=== PATIENT | female | born 1960 | race African-American/Black ===

== ENCOUNTER 2019-04-29 13:21 | Inpatient (IN) | payer OTHER ==
[2019-04-29 14:21] VITALS: BMI 24.3
--- NOTE | 2019-04-29 15:40 | HP ---
CIWA Score Nausea/Vomitin-Mild Nausea/No Vomiting Muscle Tremors: 2 Anxiety: 3 Agitation: 3 Paroxysmal Sweats: 1-Minimal Palms Moist Orientation: 0-Oriented Tacttile Disturbances: 0-None Auditory Disturbances: 0-None Visual Disturbances: 0-None Headache: 3-Moderate CIWA-Ar Total Score: 13 - Admission Criteria OASAS Guidelines: Admission for Medically Managed Detox: Requires at least one of the followin. CIWA greater than 12 2. Seizures within the past 24 hours 3. Delirium tremens within the past 24 hours 4. Hallucinations within the past 24 hours 5. Acute intervention needed for co occurring medical disorder 6. Acute intervention needed for co occurring psychiatric disorder 7. Severe withdrawal that cannot be handled at a lower level of care (continued vomiting, continued diarrhea, abnormal vital signs) requiring intravenous medication and/or fluids 8. Patient presents the following: CIWA greater than 12 Admission Criteria Met: Admission criteria met Admitting History and Physical - Past Medical History ...LMP: 06/11/13 - Smoking History Smoking history: Current every day smoker Have you smoked in the past 12 months: Yes Aproximately how many cigarettes per day: 5 - Alcohol/Substance Use Hx Alcohol Use: Yes (BEER/SOME DAY VODKA) Admission ROS [facility] Chief Complaint: here for detox Allergies/Adverse Reactions: Allergies Allergy/AdvReac Type Severity Reaction Status Date / Time No Known Allergies Allergy Verified 04/29/19 14:08 History of Present Illness: 58 yo with mental health issues and HIV, HTN, emphysema, lives in [facility]. Was referred here by counselor from her residence for detox. PCP- Dr. Joshi at [facility]. Atripla- takes it every day. Tcell 634, VL <50 per pt Pt states she drinks a 6-pack/day and occ vodka/rum. Says she is not eating well. Last drink this morning- THOMAS-0. Says she feels agitated. Cocaine $100/day DUR- oxycodone #60 on 04/16 and ambien 10mg #10 on 04/05: not seen in urine. Says she only uses it occ - Ebola screening Have you traveled outside of the country in the last 21 days: No Have you had contact with anyone from an Ebola affected area: No Do you have a fever: No - Review of Systems Constitutional: No Symptoms Reported EENT: reports: No Symptoms Reported Respiratory: reports: No Symptoms reported Cardiac: reports: No Symptoms Reported GI: reports: No Symptoms Reported : reports: No Symptoms Reported Musculoskeletal: reports: No Symptoms Reported Integumentary: reports: No Symptoms Reported Neuro: reports: No Symptoms reported Endocrine: reports: No Symptoms Reported Hematology: reports: No Symptoms Reported Psychiatric: reports: Depressed (pt states she wants to change- does not like the drinking and the crakck cocaine use) Patient History - Patient Medical History Hx Anemia: Yes Hx Asthma: No Hx Chronic Obstructive Pulmonary Disease (COPD): No Hx Cardiac Disorders: No Hx Congestive Heart Failure: No Hx Hypertension: Yes (currently on treatment) Hx Hypercholesterolemia: No HX Cerebrovascular Accident: No Hx Seizures: No Hx Diabetes: No Hx Gastrointestinal Disorders: No Hx Liver Disease: No Hx Genitourinary Disorders: No Hx Sexually Transmitted Disorders: No Hx Renal Disease (ESRD): No Hx Thyroid Disease: No Hx Human Immunodeficiency Virus (HIV): Yes (SINCE 1995) Hx Hepatitis C: No Hx Depression: Yes Hx Suicide Attempt: No Hx Bipolar Disorder: Yes Hx Schizophrenia: Yes - Patient Surgical History Past Surgical History: Yes Hx Neurologic Surgery: No Hx Cataract Extraction: No Hx Cardiac Surgery: No Hx Lung Surgery: No Hx Breast Surgery: No Hx Breast Biopsy: No Hx Abdominal Surgery: No Hx Appendectomy: No Hx Cholecystectomy: No Hx Genitourinary Surgery: No Hx Section: No Hx Orthopedic Surgery: Yes (LEFT HAND WITH 6 PLATES/SCREWS IN 1997) Anesthesia Reaction: No - PPD History Date: 06/15/13 - Reproductive History Last Menstrual Period: 06/11/13 - Smoking Cessation Smoking history: Current every day smoker Have you smoked in the past 12 months: Yes Aproximately how many cigarettes per day: 10 Hx Chewing Tobacco Use: Yes Initiated information on smoking cessation: Yes 'Breaking Loose' booklet given: 04/29/19 - Substance & Tx. History Hx Alcohol Use: Yes Hx Substance Use: Yes Substance Use Type: Alcohol, Cocaine - Substances abused Alcohol Substance route: Oral Frequency: Daily Amount used: 6 cans of beer, 1 pint liqour Age of first use: 22 Date of last use: 04/29/19 Crack Substance route: Smoking Frequency: Daily Amount used: $50 Age of first use: 20 Date of last use: 04/28/19 Admission Physical Exam BHS - Vital Signs Vital Signs: Vital Signs - 24 hr 04/29/19 14:15 Temperature 97 F L Pulse Rate 63 Respiratory 18 Rate Blood Pressure 179/93 H - Physical General Appearance: Yes: Within Normal Limits, Irritable HEENTM: Yes: Within Normal Limits, Hearing grossly Normal, Normal Voice, CLIVE, Other (dentures) Respiratory: Yes: Within Normal Limits, Chest Non-Tender, Lungs Clear Neck: Yes: Within Normal Limits Cardiology: Yes: Within Normal Limits, Regular Rate Abdominal: Yes: Within Normal Limits, Normal Bowel Sounds Genitourinary: Yes: Within Normal Limits Back: Yes: Within Normal Limits Musculoskeletal: Yes: Within Normal Limits Extremities: Yes: Within Normal Limits Neurological: Yes: Within Normal Limits Integumentary: Yes: Within Normal Limits Lymphatic: Yes: Within Normal Limits Breathalyzer - Breathalyzer Breathalyzer: 0 Urine Drug Screen - Test Device Lot number: [id number] Expiration date: 12/28/20 - Control Is test valid?: Yes - Results Drug screen NEGATIVE: No Urine drug screen results: BZO-Benzodiazepines Inpatient Rehab Admission - Rehab Decision to Admit Inpatient rehab admission?: No
[2019-04-29] MEDS ORDERED: MENTHOL/PHENOL 1 EACH UD MM PRN (15:55)
[2019-04-29] MEDS ORDERED: chlordiazePOXIDE HCL 25 MG CAPSULE PO PRN (15:55)
[2019-04-29] MEDS ORDERED: MELATONIN 5 MG TABLETS PO PRN (15:55)
[2019-04-29] MEDS ORDERED: BISMUTH SUBSALICYLATE 524 MG/30 ML UD PO PRN (15:55)
[2019-04-29] MEDS ORDERED: IBUPROFEN 400 MG TABLET (FP) PO PRN (15:55)
[2019-04-29] MEDS ORDERED: hydrOXYzine PAMOATE 25 MG CAPSULE (FP) PO PRN (15:55)
[2019-04-29] MEDS ORDERED: ACETAMINOPHEN 325 MG TABLET (FP) PO PRN (15:55)
[2019-04-29] MEDS ORDERED: MAGNESIUM CITRATE 300 ML BOTTLE PO PRN (15:55)
[2019-04-29] MEDS ORDERED: METHOCARBAMOL 500 MG TABLET PO PRN (15:55)
[2019-04-29] MEDS ORDERED: MAG HYDROX/AL HYDROX/SIMETH 30 ML UNIT-DOSE CUP PO PRN (15:55)
[2019-04-29] MEDS: chlordiazePOXIDE HCL 25 MG CAPSULE PO SCH ×2 (17:26→22:10)
[2019-04-29] MEDS: ALBUTEROL SO4 8 GM HFA INHALER IH SCH ×2 (17:27→22:11)
[2019-04-29] MEDS ORDERED: cloNIDine HCL 0.1 MG TABLET PO ONE (18:00)
[2019-04-29] MEDS ORDERED: QUEtiapine FUMARATE 25 MG TABLET (FP) PO SCH (22:00)
[2019-04-29] MEDS: THIAMINE HCL 100 MG TABLET (FP) PO SCH (22:10)
[2019-04-30] MEDS: chlordiazePOXIDE HCL 25 MG CAPSULE PO SCH ×4 (05:50→22:39)
[2019-04-30] MEDS: ALBUTEROL SO4 8 GM HFA INHALER IH SCH ×6 (05:51→21:01)
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
[2019-04-30] MEDS ORDERED: PATIENT'S OWN MEDICATION (NON-FORMULARY) (Efavirenz/Emtricitab/Tenofovir 1 TAB) PO SCH (10:00)
[2019-04-30] MEDS: EFAVIRENZ 600 MG TABLET PO SCH (10:40)
[2019-04-30] MEDS: PRENATAL VITAMINS W/ FOLIC ACID TABLET (FP) PO SCH (10:40)
[2019-04-30] MEDS: NICOTINE 14 MG/24 HOURS TOPICAL PATCH TD SCH (10:40)
[2019-04-30] MEDS: EMTRICITABINE 200MG/TENOFOVIR 300MG PO SCH (10:40)
[2019-04-30] MEDS: NIFEdipine E.R. 90 MG TABLET (FP) PO SCH (10:40)
[2019-04-30 12:05] LABS: HEMATOCRIT 37.1 % (32.4-45.2); HEMOGLOBIN 12.6 GM/dL (10.7-15.3); MCH 32.4 pg (25.7-33.7); MCHC 33.8 g/dl (32.0-36.0); MEAN CELL VOLUME 95.6 fl (80-96); MEAN PLT VOLUME 8.5 fl (7.5-11.1); PLATELET COUNT 264 K/MM3 (134-434); RBC 3.88 M/mm3 (3.60-5.2); RDW 14.2 % (11.6-15.6); WHITE BLOOD COUNT 4.7 K/mm3 (4.0-10.0)
[2019-04-30 12:40] LABS: ALBUMIN 3.5 g/dl (3.4-5.0); BILIRUBIN,TOTAL 0.6 mg/dL (0.2-1); BLOOD UREA NITROGEN 15.5 mg/dL (7-18); CALCIUM 8.6 mg/dL (8.5-10.1); CREATININE 0.9 mg/dL (0.55-1.3); POTASSIUM 4.5 mmol/L (3.5-5.1); TOT PROT 6.4 g/dl (6.4-8.2)
--- NOTE | 2019-04-30 14:03 | PN ---
S CIWA - CIWA Score Nausea/Vomitin-No Nausea/No Vomiting Muscle Tremors: 3 Anxiety: 2 Agitation: 3 Paroxysmal Sweats: 3 Orientation: 0-Oriented Tacttile Disturbances: 0-None Auditory Disturbances: 0-None Visual Disturbances: 0-None Headache: 0-None Present CIWA-Ar Total Score: 11 S Progress Note (SOAP) Subjective: sweats stomach ache headache interrupted sleep body aches Objective: 04/30/19 14:02 Vital Signs Temperature 98.4 F 04/30/19 13:29 Pulse Rate 75 04/30/19 13:29 Respiratory Rate 18 04/30/19 13:29 Blood Pressure 158/89 04/30/19 13:29 O2 Sat by Pulse Oximetry (%) Laboratory Tests 04/30/19 04/30/19 08:45 08:45 WBC 4.7 RBC 3.88 Hgb 12.6 Hct 37.1 MCV 95.6 MCH 32.4 MCHC 33.8 RDW 14.2 Plt Count 264 MPV 8.5 Sodium 140 Potassium 4.5 Chloride 107 Carbon Dioxide 28 Anion Gap 6 L BUN 15.5 Creatinine 0.9 Est GFR (CKD-EPI)AfAm 82.84 Est GFR (CKD-EPI)NonAf 71.48 Random Glucose 79 Calcium 8.6 Total Bilirubin 0.6 AST 9 L ALT 18 Alkaline Phosphatase 109 Total Protein 6.4 Albumin 3.5 labs noted aaox3 ambulating no acute distress Assessment: 04/30/19 14:03 withdrawals sx Plan: continue detox increase fluids MOM prn tylenol prn
[2019-04-30] MEDS ORDERED: QUEtiapine FUMARATE 50 MG TABLET ONE (19:57)
[2019-04-30] MEDS: THIAMINE HCL 100 MG TABLET (FP) PO SCH (22:38)
[2019-04-30] MEDS: QUEtiapine FUMARATE 50 MG TABLET PO SCH (22:39)
[2019-05-01] MEDS ORDERED: chlordiazePOXIDE HCL 25 MG CAPSULE PO SCH (05:00)
[2019-05-01] MEDS ORDERED: chlordiazePOXIDE 5 MG CAPSULE PO SCH (05:45)
[2019-05-01] MEDS: ALBUTEROL SO4 8 GM HFA INHALER IH SCH ×6 (06:24→23:07)
[2019-05-01] MEDS: PRENATAL VITAMINS W/ FOLIC ACID TABLET (FP) PO SCH (10:16)
[2019-05-01] MEDS: NICOTINE 14 MG/24 HOURS TOPICAL PATCH TD SCH (10:16)
[2019-05-01] MEDS: EMTRICITABINE 200MG/TENOFOVIR 300MG PO SCH (10:17)
[2019-05-01] MEDS: EFAVIRENZ 600 MG TABLET PO SCH (10:17)
[2019-05-01] MEDS: NIFEdipine E.R. 90 MG TABLET (FP) PO SCH (10:17)
[2019-05-01] MEDS: MAGNESIUM HYDROX 2400MG/30ML ORAL SUSPENSION 30 ML CUP PO PRN ×2 (10:34→17:40)
[2019-05-01] MEDS ORDERED: diazePAM 5 MG TABLET PO PRN (10:37)
[2019-05-01] MEDS ORDERED: ONDANSETRON *ODT* 4 MG TABLET SL PRN (11:11)
--- NOTE | 2019-05-01 11:11 | PN ---
S CIWA - CIWA Score Nausea/Vomitin-No Nausea/No Vomiting Muscle Tremors: 3 Anxiety: 3 Agitation: 2 Paroxysmal Sweats: 2 Orientation: 0-Oriented Tacttile Disturbances: 0-None Auditory Disturbances: 0-None Visual Disturbances: 0-None Headache: 0-None Present CIWA-Ar Total Score: 10 BHS Progress Note (SOAP) Subjective: The librium is really messing up with my stomach sweats little shakes interrupted sleep tired nausea Objective: 05/01/19 11:09 Vital Signs Temperature 98.9 F 05/01/19 09:28 Pulse Rate 81 05/01/19 09:28 Respiratory Rate 17 05/01/19 09:28 Blood Pressure 160/95 05/01/19 09:28 O2 Sat by Pulse Oximetry (%) Laboratory Tests 04/30/19 04/30/19 04/30/19 08:45 08:45 08:45 WBC 4.7 RBC 3.88 Hgb 12.6 Hct 37.1 MCV 95.6 MCH 32.4 MCHC 33.8 RDW 14.2 Plt Count 264 MPV 8.5 Sodium 140 Potassium 4.5 Chloride 107 Carbon Dioxide 28 Anion Gap 6 L BUN 15.5 Creatinine 0.9 Est GFR (CKD-EPI)AfAm 82.84 Est GFR (CKD-EPI)NonAf 71.48 Random Glucose 79 Calcium 8.6 Total Bilirubin 0.6 AST 9 L ALT 18 Alkaline Phosphatase 109 Total Protein 6.4 Albumin 3.5 RPR Titer Nonreactive labs noted aaox3 ambulating no acute distress Assessment: 05/01/19 11:10 withdrawals Plan: pt agreed to have her detox medication switched from librium to valium detox. continue with new detox regimen as per pt request increase fluids MOM/mylanta prn zofran sl prn
[2019-05-01] MEDS: ACETAMINOPHEN 325 MG TABLET (FP) PO PRN ×2 (17:54→22:53)
[2019-05-01] MEDS: diazePAM 5 MG TABLET PO SCH (22:11)
[2019-05-01] MEDS: THIAMINE HCL 100 MG TABLET (FP) PO SCH (22:11)
[2019-05-01] MEDS: QUEtiapine FUMARATE 50 MG TABLET PO SCH (22:11)
[2019-05-02] MEDS ORDERED: chlordiazePOXIDE HCL 10 MG CAPSULE PO PRN
[2019-05-02] MEDS: ALBUTEROL SO4 8 GM HFA INHALER IH SCH ×6 (00:36→20:30)
[2019-05-02] MEDS ORDERED: chlordiazePOXIDE HCL 10 MG CAPSULE PO SCH (05:00)
[2019-05-02] MEDS: diazePAM 5 MG TABLET PO SCH ×2 (10:54→22:29)
[2019-05-02] MEDS: PRENATAL VITAMINS W/ FOLIC ACID TABLET (FP) PO SCH (10:55)
[2019-05-02] MEDS: NICOTINE 14 MG/24 HOURS TOPICAL PATCH TD SCH (10:55)
[2019-05-02] MEDS: EFAVIRENZ 600 MG TABLET PO SCH (10:55)
[2019-05-02] MEDS: NIFEdipine E.R. 90 MG TABLET (FP) PO SCH (10:55)
[2019-05-02] MEDS: EMTRICITABINE 200MG/TENOFOVIR 300MG PO SCH (10:55)
[2019-05-02] MEDS: ACETAMINOPHEN 325 MG TABLET (FP) PO PRN (11:54)
--- NOTE | 2019-05-02 13:23 | PN ---
S CIWA - CIWA Score Nausea/Vomitin-No Nausea/No Vomiting Muscle Tremors: 3 Anxiety: 2 Agitation: 2 Paroxysmal Sweats: 2 Orientation: 0-Oriented Tacttile Disturbances: 0-None Auditory Disturbances: 0-None Visual Disturbances: 0-None Headache: 0-None Present CIWA-Ar Total Score: 9 S Progress Note (SOAP) Subjective: agitation irritable body aches Objective: 05/02/19 13:21 Vital Signs Temperature 98.4 F 05/02/19 09:58 Pulse Rate 80 05/02/19 09:58 Respiratory Rate 16 05/02/19 09:58 Blood Pressure 158/91 05/02/19 09:58 O2 Sat by Pulse Oximetry (%) Laboratory Tests 04/30/19 04/30/19 04/30/19 08:45 08:45 08:45 WBC 4.7 RBC 3.88 Hgb 12.6 Hct 37.1 MCV 95.6 MCH 32.4 MCHC 33.8 RDW 14.2 Plt Count 264 MPV 8.5 Sodium 140 Potassium 4.5 Chloride 107 Carbon Dioxide 28 Anion Gap 6 L BUN 15.5 Creatinine 0.9 Est GFR (CKD-EPI)AfAm 82.84 Est GFR (CKD-EPI)NonAf 71.48 Random Glucose 79 Calcium 8.6 Total Bilirubin 0.6 AST 9 L ALT 18 Alkaline Phosphatase 109 Total Protein 6.4 Albumin 3.5 RPR Titer Nonreactive labs noted aaox3 ambulating no acute distress Assessment: 05/02/19 13:22 withdrawals sx Plan: continue detox increase fluids
[2019-05-02] MEDS ORDERED: HYDROCHLOROTHIAZIDE 12.5 MG CAPSULE (FP) PO SCH (14:00)
[2019-05-02] MEDS: THIAMINE HCL 100 MG TABLET (FP) PO SCH (22:29)
[2019-05-02] MEDS: QUEtiapine FUMARATE 50 MG TABLET PO SCH (22:29)
[2019-05-03] MEDS: ALBUTEROL SO4 8 GM HFA INHALER IH SCH ×3 (05:00→09:25)
[2019-05-03] MEDS ORDERED: chlordiazePOXIDE HCL 10 MG CAPSULE PO SCH (05:00)
[2019-05-03] MEDS ORDERED: diazePAM 5 MG TABLET PO SCH (06:00)
--- NOTE | 2019-05-03 08:35 | PN ---
[facility] Progress Note Note: Patient is scheduled for discharge today. Script for 30 days supply of Seroquel 50 mg/hs is electronicaly transmitted to [place] [facility] at [address] [place], [place] [id number]
--- NOTE | 2019-05-03 09:41 | DS ---
[facility] Detox Discharge Summary Admission Date: 04/29/19 Discharge Date: 05/03/19 - History Present History: Alcohol Dependence, Cocaine Dependence - Physical Exam Results Vital Signs: Vital Signs Temperature 97.5 F L 05/03/19 07:45 Pulse Rate 78 05/03/19 07:45 Respiratory Rate 18 05/03/19 07:45 Blood Pressure 151/78 05/03/19 07:45 O2 Sat by Pulse Oximetry (%) Pertinent Admission Physical Exam Findings: pt arrived in withdrawals Laboratory Tests 04/30/19 04/30/19 04/30/19 08:45 08:45 08:45 WBC 4.7 RBC 3.88 Hgb 12.6 Hct 37.1 MCV 95.6 MCH 32.4 MCHC 33.8 RDW 14.2 Plt Count 264 MPV 8.5 Sodium 140 Potassium 4.5 Chloride 107 Carbon Dioxide 28 Anion Gap 6 L BUN 15.5 Creatinine 0.9 Est GFR (CKD-EPI)AfAm 82.84 Est GFR (CKD-EPI)NonAf 71.48 Random Glucose 79 Calcium 8.6 Total Bilirubin 0.6 AST 9 L ALT 18 Alkaline Phosphatase 109 Total Protein 6.4 Albumin 3.5 RPR Titer Nonreactive pt is aaox3 ambulating no acute distress no s/s of withdrawals - Treatment Hospital Course: Detox Protocol Followed, Detoxed Safely, Responded well, Discharged Condition Good, Rehab Referral Accepted Patient has Accepted a Rehab Referral to: referral provided - Medication Discharge Medications: Ambulatory Orders Albuterol Sulfate Inhaler - [Ventolin HFA Inhaler -] 2 inh PO Q4H 06/13/13 Efavirenz/Emtricitab/Tenofovir [Atripla Tablet -] 1 tab PO DAILY 06/13/13 Nifedipine ER [Procardia XL -] 90 mg PO DAILY 06/13/13 Quetiapine Fumarate [Seroquel -] 25 mg PO HS 04/29/19 Quetiapine Fumarate [Seroquel -] 50 mg PO HS #30 tablet 05/03/19 - Diagnosis (1) Substance-induced sleep disorder Current Visit: Yes Status: Acute (2) Uncomplicated alcohol dependence Current Visit: Yes Status: Chronic (3) HIV (human immunodeficiency virus infection) Current Visit: Yes Status: Chronic Qualifiers: HIV symptom status: unspecified Qualified Code(s): B20 - Human immunodeficiency virus [HIV] disease (4) Nicotine dependence Current Visit: Yes Status: Chronic Qualifiers: Nicotine product type: cigarettes Substance use status: uncomplicated Qualified Code(s): F17.210 - Nicotine dependence, cigarettes, uncomplicated (5) Schizoaffective disorder Current Visit: Yes Status: Chronic (6) Alcohol dependence Current Visit: Yes Status: Acute (7) Cocaine dependence Current Visit: Yes Status: Acute (8) Essential hypertension Current Visit: No Status: Acute (9) Gastroesophageal reflux disease Current Visit: No Status: Acute (10) Human immunodeficiency virus infection Current Visit: Yes Status: Acute - AMA Did Patient Leave Against Medical Advice: No
[2019-05-03 10:23] VITALS: BP 159/97; PULSE 86; TEMP 97.7
[2019-05-04] MEDS ORDERED: chlordiazePOXIDE HCL 10 MG CAPSULE PO ONE (05:00)
[2019-05-04] MEDS ORDERED: diazePAM 5 MG TABLET PO ONE (06:00)
== END 2019-05-03 10:06 | disposition home or self-care (01) | DRG 774 ==
LOC: YASAS 13:21 → Y6N 16:39
PROVIDERS: ADMIT Surgery; ATTEND Surgery
PROC: HZ2ZZZZ Detoxification Services for Substance Abuse Treatment (ICD-10-PCS; principal; 2019-04-29)
DX: F10.230 Alcohol dependence with withdrawal, uncomplicated (principal); F14.20 Cocaine dependence, uncomplicated; F17.210 Nicotine dependence, cigarettes, uncomplicated; F19.282 Other psychoactive substance dependence with psychoactive substance-induced sleep disorder; F25.9 Schizoaffective disorder, unspecified; F31.9 Bipolar disorder, unspecified; Z21 Asymptomatic human immunodeficiency virus [HIV] infection status; I10 Essential (primary) hypertension; K21.9 Gastro-esophageal reflux disease without esophagitis; D64.9 Anemia, unspecified
CPT/HCPCS: 36415; 80053; 85027; 86593; J0735